=== PATIENT | male | born 1955 | race Caucasian/White ===

== ENCOUNTER 2018-01-28 09:12 | Outpatient (CLI) | payer OTHER ==
--- NOTE | 2018-01-28 11:18 | ULT ---
ULTRASOUND ABDOMEN COMPLETE: HISTORY: 63-year-old male with history of Hepatitis C. FINDINGS: The gallbladder has normal wall thickness and has no evidence of gallstones or sludge. The hepatic e chogenicity is normal. The kidneys have normal echogenicity, and there is no hydronephrosis. There is no splenomegaly. Abdominal aorta is obscured by shadowing from bowel gas. No free fluid is ident ified. The inferior vena cava is visualized. The pancreas is visualized, although ultrasound is rel atively insensitive for pancreatic pathology compared to CT and MRI. There is no biliary dilation. The common duct caliber is 2 mm. IMPRESSION: 1. Abdominal aorta not visualized due to shadowing by bowel gas. 2. Otherwise normal. jn POS: [facility]
== END 2018-01-28 09:13 | disposition home or self-care (01) ==
LOC: ULT 09:12
PROVIDERS: ATTEND Family Medicine
DX: Z09 Encounter for follow-up examination after completed treatment for conditions other than malignant neoplasm (principal); Z86.19 Personal history of other infectious and parasitic diseases
CPT/HCPCS: 36415; 76700; 87521

== ENCOUNTER 2018-03-20 12:53 | Outpatient (CLI) | payer OTHER ==
--- NOTE | 2018-03-20 13:24 | RAD ---
PA AND LATERAL VIEWS CHEST: HISTORY: Dyspnea. FINDINGS: The heart size is normal. The lungs are expanded without focal areas of consolidation, pneumothorax, or pleural effusions. There is flattening of the diaphragm indicative of COPD. No acute osseous ab normalities are seen. IMPRESSION: No radiographic evidence of acute cardiopulmonary process. POS: [facility]
== END 2018-03-20 12:54 | disposition home or self-care (01) ==
LOC: RAD 12:53
PROVIDERS: ATTEND Internal Medicine Critical Care Medicine
DX: R06.00 Dyspnea, unspecified (principal)
CPT/HCPCS: 71046

== ENCOUNTER 2019-08-05 07:13 | Outpatient (CLI) | payer OTHER ==
--- NOTE | 2019-08-05 11:30 | CT ---
CT CHEST WITHOUT CONTRAST: Date: 08/05/19 Multiple axial tomograms obtained of chest following a low dose protocol with multiplanar reconstruct ion. INDICATION: Personal history of tobacco use x40 years. Comparison made to low dose CT chest dated 02/22/16. FINDINGS: Lungs show hyperexpansion and early changes of COPD. Mild interstitial thickening in the periphery of both lungs is noted. Mild stranding in the medial right middle lobe. There is mild stranding and ate lectasis in the lingula. Mild posterior lobe stranding. No evidence of pulmonary infiltrate. No mass or nodule. No evidence of effusion. Mediastinum unremarkable. IMPRESSION: Chronic lung parenchymal changes as described. Recommend 1 year follow-up low dose screening. Lung-RA DS 2. POS: OFF
--- NOTE | 2019-08-06 12:34 | CT ---
CT HEART W/O CONT, COLTON SCORING History: E 78.4 other hyperlipidemia Comparison: None. Findings: CT of the coronary vessels was performed to evaluate for calcifications. Scar within the lingula. Remainder the lungs are clear. The total Agatston score of 201. There are calcifications within the left main coronary artery and le ft anterior descending coronary artery. Impression: Totally Agatston of 201 indicating definite, at least moderate atherosclerotic plaque. Mi ld coronary artery disease highly likely, significant narrowings possible.
== END 2019-08-05 07:14 | disposition home or self-care (01) ==
LOC: BICCT 07:13 → CT 07:14
PROVIDERS: ATTEND Family Medicine
DX: Z87.891 Personal history of nicotine dependence (principal); E78.49 Other hyperlipidemia
CPT/HCPCS: 75571; G0297